=== PATIENT | female | born 1950 | race American Indian/Alaskan Native ===

== ENCOUNTER 2017-11-10 19:27 | Emergency (ER) | payer MEDICARE, OTHER ==
[2017-11-10] MEDS ORDERED: ATIVAN IV ONE (20:35)
[2017-11-10] MEDS ORDERED: KEPPRA 1,000 MG/NS 0.75% 100ML 1,000 MG/100 ML BAG IV ONE (20:36)
[2017-11-10 20:57] LABS: BUN/Creatinine Ratio 16; Blood Urea Nitrogen 14 mg/dL (7-17); Calcium 10.1 mg/dL (8.4-10.2); Hemolysis Index 283
--- NOTE | 2017-11-10 20:59 | Emergency Department Report ---
ED Seizure HPI - General Chief Complaint: Seizure Stated Complaint: SEIZURE Time Seen by Provider: 11/10/17 20:17 Source: family, EMS Mode of arrival: Stretcher Limitations: Altered Mental Status - History of Present Illness Initial Comments: Patient is 67 years old female history of hypertension diabetes and seizure. Patient had history of an tumor with resection twice at [facility]. Patient brought to the ER by her after one episode of generalized seizure. Patient stated that he is not sure if the patient is taking her medication or not. He told me that they just came back from the [facility] after they went for a cruise. He denied any history of fever, recent trauma or injury, headache or neck pain or stiffness. MD Complaint: seizure -: Sudden Description of Episode: loss of consciousness, tonic-clonic movement, post- event confusion Witnessed:: Yes Trauma: No Seizure History: known seizure disorder Treatments Prior to Arrival: none - Related Data Previous Rx's Medication Instructions Recorded Last Taken Type levETIRAcetam [Keppra] 500 mg PO BID #60 tablet NS 04/22/14 Unknown Rx Prednisone [predniSONE 5 mg (6-Day 5 mg PO .TAPER #1 tab.ds.pk 02/14/16 Unknown Rx Pack, 21 Tabs)] hydrOXYzine HCL [Atarax] 25 mg PO Q6HR PRN #20 tablet 02/14/16 Unknown Rx Allergies Allergy/AdvReac Type Severity Reaction Status Date / Time No Known Allergies Allergy Verified 04/22/14 08:28 ED Review of Systems ROS: Stated complaint: SEIZURE Other details as noted in HPI Comment: All other systems reviewed and negative Constitutional: denies: chills, fever ENT: denies: throat pain Respiratory: denies: cough, orthopnea, shortness of breath, SOB with exertion, SOB at rest, wheezing Cardiovascular: denies: chest pain, palpitations, dyspnea on exertion, orthopnea Gastrointestinal: denies: abdominal pain, nausea, vomiting, diarrhea, constipation, hematemesis, melena, hematochezia Genitourinary: denies: urgency, dysuria Neurological: denies: headache, weakness, numbness, paresthesias, confusion ED Past Medical Hx - Past Medical History Previous Medical History?: Yes Hx Hypertension: Yes Hx Diabetes: Yes Hx Seizures: Yes (Secondary to brain cancer and surgery) Additional medical history: Brain Cancer - Surgical History Past Surgical History?: Yes Additional Surgical History: Hyst. Brain Surgery to remove tumor x2 - Social History Smoking Status: Never Smoker Substance Use Type: None - Medications Home Medications: Home Medications Medication Instructions Recorded Confirmed Last Taken Type levETIRAcetam [Keppra] 500 mg PO BID #60 tablet NS 04/22/14 Unknown Rx Prednisone [predniSONE 5 mg (6-Day 5 mg PO .TAPER #1 tab.ds.pk 02/14/16 Unknown Rx Pack, 21 Tabs)] hydrOXYzine HCL [Atarax] 25 mg PO Q6HR PRN #20 tablet 02/14/16 Unknown Rx ED Physical Exam - General Limitations: Altered Mental Status General appearance: alert, in no apparent distress, postictal - Head Head exam: Present: atraumatic, normocephalic, normal inspection - Eye Eye exam: Present: normal appearance, PERRL - ENT ENT exam: Present: normal exam, normal orophraynx, mucous membranes moist, TM's normal bilaterally, normal external ear exam - Neck Neck exam: Present: normal inspection, full ROM. Absent: tenderness, meningismus, lymphadenopathy, thyromegaly - Respiratory Respiratory exam: Present: normal lung sounds bilaterally - Cardiovascular Cardiovascular Exam: Present: regular rate, normal rhythm, normal heart sounds - GI/Abdominal GI/Abdominal exam: Present: soft, normal bowel sounds. Absent: distended, tenderness, guarding, rebound, rigid, organomegaly, mass, bruit, pulsatile mass , hernia - Extremities Exam Extremities exam: Present: normal inspection, full ROM, normal capillary refill - Back Exam Back exam: Present: normal inspection, full ROM. Absent: tenderness, CVA tenderness (R), CVA tenderness (L) - Neurological Exam Neurological exam: Present: alert, oriented X3, CN II-XII intact, normal gait - Skin Skin exam: Present: warm, intact, normal color ED Course Vital Signs 11/10/17 11/10/17 11/10/17 20:24 20:31 20:45 Pulse Rate 99 H Respiratory 17 Rate Blood Pressure 172/72 159/67 O2 Sat by Pulse 72 L 100 100 Oximetry 11/10/17 11/10/17 11/10/17 21:01 21:15 21:30 Pulse Rate 96 H 99 H 102 H Respiratory 22 31 H 34 H Rate Blood Pressure 159/67 159/67 159/67 O2 Sat by Pulse 100 99 100 Oximetry 11/10/17 22:20 Pulse Rate 92 H Respiratory Rate Blood Pressure 159/67 O2 Sat by Pulse Oximetry ED Medical Decision Making - Lab Data Result diagrams: 11/10/17 20:33 11/10/17 20:33 - Radiology Data Radiology results: report reviewed Referring Physician: ROSEANN PEDERSON Patient Name: ROHITH JESSICA Date of : 1950 Sex: Female Report Date: 2017-11-10 Report Status: Finalized Findings [facility] [address] [place] [address] Cat Scan Report Signed Patient: ROHITH JESSICA MR#: [id number] : 1950 Acct:[id number] Age/Sex: 67 / F ADM Date: 11/10/17 Loc: ED Attending Dr: Ordering Physician: ROSEANN PEDERSON Date of Service: 11/10/17 Procedure(s): CT head/brain wo/w con Accession Number(s): [id number] cc: ROSEANN PEDERSON FINAL REPORT EXAM: CT HEAD/BRAIN WO/W CON HISTORY: h/o Brain tumor/seizure TECHNIQUE: CT head with and without contrast PRIORS: There are no prior studies submitted for comparison FINDINGS: There is evidence for prior frontal conchae craniotomy. There is vasogenic edema throughout the frontal lobe. There are multiple enhancing dural-based mass is seen in the frontal region bilaterally following contrast administration consistent with tumor recurrence. No acute intra or extra-axial hemorrhage identified. No evidence for midline shift basal cisterns are unremarkable. No additional parenchymal abnormalities are noted. IMPRESSION: Multiple frontal dural-based enhancing masses with vasogenic edema consistent with tumor Transcribed By: SHONA Dictated By: ZO RICO MD Electronically Authenticated By: ZO RICO MD Signed Date/Time: 11/10/172300 DD/ 00 TD/TT: 11/10/172300 - Medical Decision Making I discussed the patient is Dr. Verde from [place] neuro ICU, he accepted the patient to be transferred to [place]. Critical care attestation.: If time is entered above; I have spent that time in minutes in the direct care of this critically ill patient, excluding procedure time. ED Disposition Clinical Impression: Seizure, Brain tumor Disposition: DC/TX-70 ANOTHER TYPE HLTHCARE Is pt being admited?: No Condition: Stable Referrals: PRIMARY CARE, [Primary Care Provider] - 3-5 Days
[2017-11-10 21:11] LABS: Hematocrit 44.7 % (30.3-42.9); Hemoglobin 14.5 gm/dl (10.1-14.3); Mean Corpuscular HGB Conc 33 % (30-34); Mean Corpuscular Hemoglobin 30 pg (28-32); Mean Corpuscular Volume 92 fl (79-97); Platelet Count 283 K/mm3 (140-440); Red Blood Count 4.86 M/mm3 (3.65-5.03)
[2017-11-10] MEDS ORDERED: HumuLIN R IV ONE (22:49)
--- NOTE | 2017-11-10 23:06 | Cat Scan Report ---
FINAL REPORT EXAM: CT HEAD/BRAIN WO/W CON HISTORY: h/o Brain tumor/seizure TECHNIQUE: CT head with and without contrast PRIORS: There are no prior studies submitted for comparison FINDINGS: There is evidence for prior frontal conchae craniotomy. There is vasogenic edema throughout the frontal lobe. There are multiple enhancing dural-based mass is seen in the frontal region bilaterally following contrast administration consistent with tumor recurrence. No acute intra or extra-axial hemorrhage identified. No evidence for midline shift basal cisterns are unremarkable. No additional parenchymal abnormalities are noted. IMPRESSION: Multiple frontal dural-based enhancing masses with vasogenic edema consistent with tumor
[2017-11-11 00:31] LABS: Bilirubin,Urine NEG (Negative); Blood,Urine NEG (Negative); Color,Urine Yellow (Yellow); Mucus,Urine FEW /HPF; Protein,Urine <15 mg/dL mg/dL (Negative); Urobilinogen,Urine < 2.0 mg/dL (<2.0)
[2017-11-11 00:39] LABS: Amphetamine Screen,Urine PRESUMPTIVE NEGATIVE; Benzodiazepines Screen,Urine PRESUMPTIVE NEGATIVE; Cannabinoid Screen,Urine PRESUMPTIVE NEGATIVE; Cocaine Screen,Urine PRESUMPTIVE NEGATIVE; Methadone Screen,Urine PRESUMPTIVE NEGATIVE; Opiate Screen,Urine PRESUMPTIVE NEGATIVE
[2017-11-11 01:27] VITALS: BP 157/70
== END 2017-11-11 01:38 | disposition other institution (70) ==
LOC: ED 19:27
DX: C71.9 Malignant neoplasm of brain, unspecified (principal); I10 Essential (primary) hypertension; E11.9 Type 2 diabetes mellitus without complications
CPT/HCPCS: 36415; 70470; 80048; 80307; 81001; 82962; 85027; 96365; 96375; 99284; J1953; J2060; Q9967; J1815

== ENCOUNTER 2018-04-03 10:58 | Emergency (ER) | payer MEDICARE, OTHER ==
[2018-04-03 11:18] VITALS: BP 186/64
== END 2018-04-03 14:04 | disposition left against medical advice (07) ==
LOC: ED 10:58
DX: R56.9 Unspecified convulsions (principal); Z53.21 Procedure and treatment not carried out due to patient leaving prior to being seen by health care provider
CPT/HCPCS: 82962; 93005; 93010